=== PATIENT | male | born 1975 | race Caucasian/White ===

== ENCOUNTER 2021-01-26 18:05 | Emergency (ER) | payer OTHER ==
[~2021-01-26 18:05] MED LIST: ASPIR 8181 MG PO; DILTIAZEM 24HR180 M1 PO; FISH OIL 1,0001 EAC4 PO; RESTASIS1 EACH OP
[2021-01-26 19:54] LABS: HEMOGLOBIN 14.9 gm/dl (14.0-17.5); RED BLOOD COUNT 4.48 M/UL (4.20-5.50); WHITE BLOOD COUNT 5.5 K/UL (4.5-11.0)
[2021-01-26 20:19] LABS: BUN/CREATININE RATIO 10 (0-10)
[2021-01-27] MEDS ORDERED: ZOFRAN ODT 4 MG4 MG PO (00:52)
[2021-01-27] MEDS ORDERED: BENTYL 10MG CAP10 MG PO (00:52)
[2021-01-27] MEDS ORDERED: COLACE 100MG C100 MG PO (00:52)
[2021-01-27] MEDS ORDERED: IBUPROFEN800 MG PO (00:52)
== END 2021-01-27 01:00 | disposition home or self-care (01) ==
LOC: ER1 18:05
PROVIDERS: Physician Assistant
DX: R10.11 Right upper quadrant pain (principal); F17.220 Nicotine dependence, chewing tobacco, uncomplicated; Z90.89 Acquired absence of other organs; Z88.0 Allergy status to penicillin
CPT/HCPCS: 80053; 82150; 82550; 82553; 83605; 83690; 84484; 85025; 85379; 93005; 99284; J2270; J2405; Q9967

== ENCOUNTER → 2022-02-24 | Outpatient (CLI) | payer OTHER ==
[~2022-02-24] MED LIST changes: +BENTYL 10MG CAP10 MG PO; +COLACE 100MG C100 MG PO; +IBUPROFEN800 MG PO; +ZOFRAN ODT 4 MG4 MG PO
== END ==
LOC: EXRD 11:24
DX: R10.31 Right lower quadrant pain (principal); N50.3 Cyst of epididymis
CPT/HCPCS: 76870